=== PATIENT | female | born 1995 | race Caucasian/White ===

== ENCOUNTER → 2016-11-17 | Outpatient (CLI) | payer OTHER ==
[2016-11-17 13:21] LABS: BASO % 0.2 % (0.0-1.0); EOS # 0.2 K/mm3 (0.0-0.50); EOS % 1.4 % (0.0-3.0); LARGE UNSTAINED CELL # 0.1 K/mm3 (0.0-0.4); LYMPH # 1.3 K/mm3 (1.5-6.5); LYMPH % 10.4 % (24.0-44.0); MEAN CORPUSCULAR HEMOGLOBIN 31.8 pg (27.0-33.0); MEAN CORPUSCULAR HGB CONC 33.8 g/dl (32.0-36.5); MEAN CORPUSCULAR VOLUME 94.2 fl (80.0-96.0); MONO # 0.5 K/mm3 (0.0-0.8); MONO % 3.8 % (0.0-5.0); NEUTROPHILS # 10.4 K/mm3 (1.8-7.7); NEUTROPHILS % 83.2 % (36.0-66.0); PLATELET COUNT, AUTOMATED 290 k/mm3 (150-450); RED CELL DISTRIBUTION WIDTH 11.4 % (11.5-14.5); WHITE BLOOD COUNT 12.5 K/mm3 (4.0-10.0)
== END ==
LOC: M SMT 10:16
PROVIDERS: ATTEND Advanced Practice Midwife
DX: Z34.83 Encounter for supervision of other normal pregnancy, third trimester (principal)

== ENCOUNTER → 2016-11-25 | Outpatient (CLI) | payer OTHER ==
--- NOTE | 2016-11-25 12:45 | REP ---
Clinical: Anatomical evaluation. Comparison: 10/28/2016 . Findings: Examination demonstrates a single live intrauterine in cephalic presentation. motion is identified by technologist. Placenta is noted anteriorly and grade zero without evidence for placenta previa or abruption. Amniotic fluid volume is normal. Cervix measures 5.7 cm in length and appears closed. No evidence for nuchal cord. Gestational age by LMP 27 weeks 6 days with EVELYN 02/18/2017 . Gestational age by current measurements 28 weeks 2 days with EVELYN 02/15/2017 . FHR equals 128 beats per minute. Estimated weight 1177 grams ( 47th percentile). Anatomical assessment demonstrates normal structures including cranium, choroid plexus, cavum, cerebellum/posterior fossa, facial features, lungs, four-chamber heart/ventricular outflow tracts, diaphragm, stomach, cord insertion/three-vessel cord, kidneys/bladder, spine, and extremities. Impression: Single live intrauterine in cephalic presentation demonstrating appropriate interval growth. Anatomical assessment is complete and normal. Signed by Darnell Xiong MD 11/25/2016 10:58 A
== END ==
LOC: M RAD 09:36
PROVIDERS: ATTEND Advanced Practice Midwife
DX: Z36 Encounter for antenatal screening of mother (principal); Z3A.27 27 weeks gestation of pregnancy

== ENCOUNTER → 2017-01-19 | Outpatient (REF) | payer OTHER | LOC: M LAB REF 13:10 | PROVIDERS: ATTEND Advanced Practice Midwife | DX: Z34.83 Encounter for supervision of other normal pregnancy, third trimester (principal) ==

== ENCOUNTER 2017-02-15 23:49 | Inpatient (IN) | payer OTHER ==
[~2017-02-15] VITALS: Ht 170.2 cm; Wt 98.0 kg
[2017-02-16] VITALS (45 sets, daily range): BP systolic 107–157; BP diastolic 54–100
[2017-02-16] MEDS ORDERED: LACTATED RINGER'S 1000 ML IV STA (01:01)
[2017-02-16] MEDS ORDERED: LR 1,000 ML IV SCH (01:01)
[2017-02-16] MEDS ORDERED: PENICILLIN G POTASSIUM IV 5 MU in D5W MINI-BAG PLUS 100 ML IV STA (01:01)
[2017-02-16] MEDS ORDERED: OXYTOCIN DRIP 30 UNITS in APPROPRIATE DILUENT 1 EA IV SCH (01:15)
[2017-02-16 01:49] LABS: MEAN CORPUSCULAR HEMOGLOBIN 30.3 pg (27.0-33.0); MEAN CORPUSCULAR HGB CONC 33.7 g/dl (32.0-36.5); MEAN CORPUSCULAR VOLUME 90.1 fl (80.0-96.0); RED CELL DISTRIBUTION WIDTH 12.1 % (11.5-14.5); WHITE BLOOD COUNT 17.1 K/mm3 (4.0-10.0)
[2017-02-16] MEDS ORDERED: FENTANYL 2MCG/ML ROPIVACAINE 0.2% IN 0.9% NACL 200ML IVBAG As Ordered ONE (02:40)
[2017-02-16] MEDS ORDERED: PREN1TAB11 PO (03:06)
[2017-02-16] MEDS ORDERED: ZOLO100T PO (03:06)
[2017-02-16] MEDS ORDERED: ePHEDrine SULFATE 25 MG/5 ML(5MG/ML) SYRINGE IV PRN (04:30)
[2017-02-16] MEDS ORDERED: NALOXONE INJ 0.4 MG/1 ML VIAL (J2310) IV PRN (04:30)
[2017-02-16] MEDS ORDERED: FENTANYL/ROPIVACAINE/NACL BAG 200 ML EPIDURAL SCH (04:30)
[2017-02-16] MEDS ORDERED: ONDANSETRON 4MG/2ML VIAL (J2405) IV PRN ×2 (04:30→11:45)
[2017-02-16] MEDS ORDERED: REFRIGERATOR IV KEYS XX PRN (04:30)
[2017-02-16] MEDS ORDERED: LACTATED RINGER'S 1000 ML IV PRN (04:30)
[2017-02-16] MEDS ORDERED: diphenhydrAMINE INJ 50MG/ML VIAL (J1200) IV PRN (04:30)
[2017-02-16] MEDS ORDERED: EPIDURAL/PCA KEYS XX PRN (04:30)
[2017-02-16] MEDS ORDERED: EPIDURAL COMMENT XX SCH (04:30)
[2017-02-16] MEDS: PENICILLIN G POTASSIUM IV 2.5 MU in D5W 100 ML IV SCH ×2 (06:10→10:11)
[2017-02-16] MEDS: PRENATAL VITAMIN TAB PO SCH (09:00)
[2017-02-16] MEDS ORDERED: diphenhydrAMINE 25 MG CAP PO ONE (09:15)
[2017-02-16] MEDS ORDERED: METHYLERGONOVINE MALEATE 0.2 MG TAB PO PRN (11:45)
[2017-02-16] MEDS ORDERED: MEASLES,MUMPS,RUBELLA VACCINE INJ (MMR-II) (90707) SC SCH (11:45)
[2017-02-16] MEDS ORDERED: RHOGAM 300 MCG (1500 IU) INJ (J2790) IM SCH (11:45)
[2017-02-16] MEDS ORDERED: ACETAMINOPHEN 500 MG TAB PO PRN (11:45)
[2017-02-16] MEDS ORDERED: IBUPROFEN 800 MG TAB PO PRN (11:45)
[2017-02-16] MEDS ORDERED: DIBUCAINE 1% OINTMENT 30GM TOP PRN (11:45)
[2017-02-16] MEDS ORDERED: DOCUSATE SODIUM 100 MG CAP PO PRN (11:45)
[2017-02-16] MEDS ORDERED: OXYTOCIN DRIP 30 UNITS in APPROPRIATE DILUENT 1 EA IV ONE (11:45)
--- NOTE | 2017-02-16 13:19 | DN ---
DATE OF DELIVERY: 02/16/2017 PREDELIVERY DIAGNOSES: 39+ weeks labor. POSTDELIVERY DIAGNOSIS: Delivered. PROCEDURE: Spontaneous vaginal delivery. HAND BINDER CUTTER: Dipak Boothe MD ANESTHESIA: Epidural. ESTIMATED BLOOD LOSS: 300 mL. FINDINGS: 6-pound 9-ounce or 3982 gram male , scores 8 and 9, left occipitoanterior position, white meconium present. DELIVERY SUMMARY: After a 25-minute second stage, the patient had spontaneous delivery of a 6-pound 9-ounce male , scores 8 and 9, under epidural anesthesia. Nuchal cord times two was reduced. The shoulders delivered spontaneously with ease. The cried spontaneously and was handed to the mother. The cord was doubly clamped and cut. The was taken to the distribution analyst for evaluation due to history of meconium. The placenta delivered spontaneously and appeared to be intact. The patient received intravenous (IV) Pitocin immediately after delivery of the placenta. A 1st-degree perineal laceration was repaired with 3-0 chronic in the usual fashion. Sponge counts were correct.
[2017-02-16] MEDS ORDERED: SERTRALINE 100 MG TAB PO SCH (21:00)
[2017-02-16] MEDS: SERTRALINE 100 MG TAB PO SCH (21:04)
[2017-02-17 06:18] VITALS: BP 124/68
[2017-02-17] MEDS: PRENATAL VITAMIN TAB PO SCH (09:07)
[2017-02-17 18:00] VITALS: BP 131/79
[2017-02-17] MEDS: SERTRALINE 100 MG TAB PO SCH (20:39)
[2017-02-18 06:16] VITALS: BP 137/89
[2017-02-18] MEDS: PRENATAL VITAMIN TAB PO SCH (09:00)
[2017-02-18] MEDS ORDERED: ACET50TA PO (09:42)
[2017-02-18] MEDS ORDERED: IBUP-1114 PO (09:42)
== END 2017-02-18 11:10 | disposition home or self-care (01) | DRG 775 ==
LOC: M LDO 23:49 → M LDI 02-16 00:46 → M OBS 02-16 16:10
PROVIDERS: ADMIT Obstetrics & Gynecology; ATTEND Obstetrics & Gynecology
PROC: 10E0XZZ Delivery of Products of Conception, External Approach (ICD-10-PCS; principal; 2017-02-16)
PROC: 0HQ9XZZ Repair Perineum Skin, External Approach (ICD-10-PCS; 2017-02-16)
DX: O69.82X0 Labor and delivery complicated by other cord entanglement, without compression, not applicable or unspecified (principal); Z37.0 Single live birth; Z3A.39 39 weeks gestation of pregnancy; O70.0 First degree perineal laceration during delivery

== ENCOUNTER → 2019-01-24 | Outpatient (REF) | payer OTHER ==
[~2019-01-24] MED LIST: IBUP-1114 PO; MAPA500T2 PO; PREN1TAB11 PO; ZOLO100T PO
[2019-01-24 14:51] LABS: CHLAMYDIA DNA AMPLIFICATION NEGATIVE (NEGATIVE); GC DNA AMPLIFICATION NEGATIVE (NEGATIVE)
== END ==
LOC: M LAB REF 12:48
PROVIDERS: ATTEND Advanced Practice Midwife
DX: Z11.3 Encounter for screening for infections with a predominantly sexual mode of transmission (principal)

== ENCOUNTER → 2019-03-01 | Outpatient (REF) | payer OTHER ==
[2019-03-08 14:12] LABS: HPV LOW VOL RFLX Negative (Negative)
== END ==
LOC: M LAB REF 13:11
PROVIDERS: ATTEND Advanced Practice Midwife
DX: Z12.4 Encounter for screening for malignant neoplasm of cervix (principal); R87.610 Atypical squamous cells of undetermined significance on cytologic smear of cervix (ASC-US)
CPT/HCPCS: 87624; G0123

== ENCOUNTER → 2019-05-22 | Outpatient (CLI) | payer OTHER ==
[2019-05-22 18:59] LABS: C REACTIVE PROTEIN QUANTITATIV < 0.30 MG/DL (0.00-0.30); RHEUMATOID FACTOR QUANT < 10.0 IU/ML (<15.0)
[2019-05-22 19:11] LABS: TOTAL 25(OH) VITAMIN D 16.1 NG/ML (30.0-100.0)
--- NOTE | 2019-05-22 21:44 | REP ---
Clinical: Bilateral hip pain. Technique: Neutral and frog lateral views of the left and right hip. Findings: No acute fracture dislocation. Skeletal structures, joint spaces, and surrounding soft tissues appear relatively normal for age. No significant degenerative or congenital abnormalities are appreciated. Impression: Essentially normal symmetric bilateral hip radiographs Electronically Signed by Darnell Xiong MD 05/22/2019 09:36 P
--- NOTE | 2019-05-22 21:45 | REP ---
Clinical: Back pain . Technique: AP, flexion/extension, lateral, bilateral oblique, and coned-down views. Findings: Alignment and lordosis is maintained. The vertebral bodies including transverse process and spinous processes are intact and normal. There is no evidence for acute fracture / compression injury or subluxation. No evidence for spondylolysis or spondylolisthesis. No significant degenerative change is noted. Impression: Normal lumbosacral spine radiograph series. Electronically Signed by Darnell Xiong MD 05/22/2019 09:36 P
[2019-05-25 00:07] LABS: ANTINUCLEAR ANTIBODIES DIRECT Negative (Negative); CYCLIC CITRULLINATED PEPTIDE 2 units (0-19); Lyme Disease IgG/IgM Antibodie <0.91 ISR (0.00-0.90); Lyme Disease IgM Ab Quantitati <0.80 index (0.00-0.79)
== END ==
LOC: M SMT 11:01
PROVIDERS: ATTEND Family Medicine
DX: M25.551 Pain in right hip (principal); M54.5 Low back pain; M25.552 Pain in left hip